=== PATIENT | male | born 1950 | race Hispanic/Latino ===

== ENCOUNTER → 2017-05-31 | Outpatient (CLI) | payer OTHER | END | disposition home or self-care (01) | LOC: OIH 12:42 | PROVIDERS: ATTEND Internal Medicine | DX: M24.811 Other specific joint derangements of right shoulder, not elsewhere classified (principal); M19.011 Primary osteoarthritis, right shoulder | CPT/HCPCS: 73030 ==

== ENCOUNTER → 2017-07-16 | Outpatient (CLI) | payer OTHER | END | disposition home or self-care (01) | LOC: RAH 13:53 | PROVIDERS: ATTEND Internal Medicine | DX: M19.111 Post-traumatic osteoarthritis, right shoulder (principal) | CPT/HCPCS: 73200 ==

== ENCOUNTER → 2017-09-17 | Outpatient (CLI) | payer OTHER | END | disposition home or self-care (01) | LOC: SHCH 09:36 | PROVIDERS: ATTEND Internal Medicine Cardiovascular Disease | DX: I42.9 Cardiomyopathy, unspecified (principal) | CPT/HCPCS: 93306 ==

== ENCOUNTER 2018-07-14 14:05 | Observation (INO) | payer OTHER ==
[~2018-07-14] VITALS: Ht 182.9 cm; Wt 101.6 kg
[2018-07-14 14:42] LABS: BASOPHILS % (AUTO) 0.3 % (0.0-5.0); EOSINOPHILS % (AUTO) 2.4 % (0.0-8.0); HEMATOCRIT 42.9 % (42-54); LYMPHOCYTES % (AUTO) 22.4 % (21.0-51.0); MEAN CORPUSCULAR HEMOGLOBIN 31.3 pg (27.0-33.0); MEAN CORPUSCULAR HGB CONC 34.5 g/dL (32.0-36.0); MEAN CORPUSCULAR VOLUME 90.6 fL (79-99); MONOCYTES % (AUTO) 10.3 % (3.0-13.0); NEUTROPHILS % (AUTO) 64.6 % (40.0-77.0); NUCLEATED RED BLOOD CELLS 0.1 % (0.0-0.19); PLATELET COUNT (AUTO) 135 K/uL (130-400); RED BLOOD CELL COUNT(AUTO) 4.74 MIL/uL (4.50-6.20); RED CELL DISTRIBUTION WIDTH 13.8 % (11.0-15.5); WHITE BLOOD COUNT (AUTO) 5.6 K/uL (4.8-10.8)
[2018-07-14 14:53] LABS: CREATININE 0.9 mg/dL (0.5-1.5); POTASSIUM 3.9 mmol/L (3.5-5.1)
[2018-07-14] MEDS ORDERED: ASPIRIN 325 MG TABLET ONE (15:32)
[2018-07-14 17:40] VITALS: BP 130/72
[2018-07-14] MEDS ORDERED: KRIL1CAP12 PO (17:55)
[2018-07-14] MEDS ORDERED: ASPI-555 PO (17:55)
[2018-07-14] MEDS ORDERED: ROSU10TA27 PO (17:55)
[2018-07-14] MEDS ORDERED: LISI-617 PO (17:55)
[2018-07-14] MEDS ORDERED: SPIR25TA6 PO (17:55)
[2018-07-14] MEDS ORDERED: METO50TA9 PO (17:55)
[2018-07-14] MEDS ORDERED: 1/2 NORMAL SALINE 1,000 ML IV ONE (18:01)
[2018-07-14] MEDS ORDERED: DEXTROSE 50%-WATER 50 ML DISP.SYRIN IV PRN (18:30)
[2018-07-14] MEDS: 1/2 NORMAL SALINE 1,000 ML IV SCH (18:30)
[2018-07-14] MEDS ORDERED: GLUCAGON 1MG KIT 1 MG ML IM PRN (18:30)
[2018-07-14 20:00] VITALS: BP 108/57
[2018-07-14] MEDS: INSULIN R PO SS1 SQ SCH (21:00)
--- NOTE | 2018-07-14 22:40 | NUR ---
MD BEAUCHAMP. DR [place] SENIOR IT ARCHITECT ROUNDING IN PT ROOM AT THIS TIME. UPDATED PT ON POC, PT WAS ABLE TO ASK QUESTIONS AT THIS TIME. Addendum: 07/15/18 at 0225 by OCTAVIO YEE RN Amended: Links added.
[2018-07-14] MEDS: LISINOPRIL 5 MG TABLET PO SCH (22:45)
[2018-07-14] MEDS: ATORVASTATIN CALCIUM 20 MG TABLET PO SCH (22:46)
[2018-07-15] VITALS (7 sets, daily range): BP systolic 107–120; BP diastolic 59–81
[2018-07-15 05:42] LABS: HEMATOCRIT 40.8 % (42-54); MEAN CORPUSCULAR HEMOGLOBIN 31.4 pg (27.0-33.0); MEAN CORPUSCULAR HGB CONC 34.3 g/dL (32.0-36.0); MEAN CORPUSCULAR VOLUME 91.4 fL (79-99); PLATELET COUNT (AUTO) 152 K/uL (130-400); RED BLOOD CELL COUNT(AUTO) 4.46 MIL/uL (4.50-6.20); RED CELL DISTRIBUTION WIDTH 13.6 % (11.0-15.5); WHITE BLOOD COUNT (AUTO) 5.6 K/uL (4.8-10.8)
[2018-07-15 05:58] LABS: ALBUMIN 3.5 g/dL (3.5-5.0); CREATININE 0.9 mg/dL (0.5-1.5); POTASSIUM 3.9 mmol/L (3.5-5.1); TOTAL PROTEIN, SERUM 6.6 g/dL (6.0-8.3)
[2018-07-15] MEDS: 1/2 NORMAL SALINE 1,000 ML IV SCH (06:01)
[2018-07-15] MEDS: INSULIN R PO SS1 SQ SCH ×4 (06:01→20:51)
[2018-07-15] MEDS: KRILL OIL 300 MG PO SCH (09:00)
[2018-07-15] MEDS: LISINOPRIL 5 MG TABLET PO SCH ×2 (09:36→20:51)
[2018-07-15] MEDS: ASPIRIN 325 MG TABLET PO SCH (09:37)
[2018-07-15] MEDS: SPIRONOLACTONE 25 MG TAB PO SCH (09:37)
--- NOTE | 2018-07-15 09:45 | NUR ---
COGNITIVE EVAL COMPLETE. COGNITIVE-LINGUISTIC ABILITIES WITHIN FUNCTIONAL LIMITS. PATIENT INFORMATION: Pt IS A 67 YEAR OLD MALE REFERRED FOR A COGNITIVE-LINGUISTIC EVALUATION SECONDARY TO DIAGNOSIS OF TIA. Pt COOPERATIVE DURING THE EVALUATION AND SERVED THE PRIMARY INFORMANT FOR MEDICAL AND SOCIAL HISTORY. Pt CURRENTLY ADMITTED SECONDARY TO TIA. 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 EVALUATION: Pt AAOX3. Pt REQUESTS WANTS AND NEEDS INDEPENDENTLY. Pt INTELLIGIBLE AT 100% ACCURACY TO THE UNFAMILIAR LISTENER. Pt COMMUNICATING AT CONVERSATIONAL LEVEL WITH NO DEFICITS IDENTIFIED AT THIS TIME. Pt COMPLETED COGNITIVE-LINGUISTIC EVALUATION TARGETING: ORIENTATION, ATTENTION/CONCENTRATION, MEMORY (IMMEDIATE, SHORT-TERM AND LONG-TERM), PROBLEM SOLVING, LOGIC/REASONING/INFERENCE, THOUGHT ORGANIZATION, FUNCTIONAL MATH AND TELLING TIME. Pt ABLE TO COMPLETE TASKS WITH CORRECT AND TIMELY ANSWERS TO ALL SECTIONS. G-CODES SPOKEN LANGUAGE EXPRESSION: [id number] Addendum: 07/15/18 at 1137 by HANNAH GEORGES [facility] Amended: Links added.
--- NOTE | 2018-07-15 10:00 | NUR ---
DYSPHAGIA EVAL COMPLETE. -S/S OF ASPIRATION. RECOMMEND REGULAR, THIN LIQUID DIET; PILLS WHOLE WITH LIQUIDS. PATIENT INFORMATION: Pt IS A 67 YEAR OLD MALE REFERRED FOR A BEDSIDE DYSPHAGIA EVALUATION N SECONDARY TO DIAGNOSIS OF TIA. Pt COOPERATIVE DURING THE EVALUATION AND SERVED THE PRIMARY INFORMANT FOR MEDICAL AND SOCIAL HISTORY. Pt CURRENTLY ADMITTED SECONDARY TO TIA. 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 EVALUATION: SWALLOW FUNCTION AND EFFICIENCY WITHIN FUNCTIONAL LIMITS. ORAL MOTOR STRENGTH, COORDINATION, AND ROM WITHIN FUNCTIONAL LIMITS. LARYNGEAL ELEVATION/EXCURSION STRONG WITH TIMELY PHARYNGEAL RESPONSE. NO OVERT SIGNS OR SYMPTOMS OF ASPIRATION PRESENT AT BEDSIDE. VOCAL QUALITY CLEAR WITH NO THROAT CLEAR OR COUGH RESPONSE PRESENT. RECOMMENDATIONS: 1. REGULAR TEXTURE, THIN LIQUID DIET; PILLS WHOLE WITH LIQUIDS. 2. COMPENSATORY STRATEGIES (PROPHYLAXIS): *SEATED AT 90 DEGREE ANGLE G-CODES SWALLOWING: [id number] Addendum: 07/15/18 at [address] Amended: Links added.
--- NOTE | 2018-07-15 14:15 | NUR ---
Nutrition intervention: Nutrition notification as trigger. Pt admitted for TIA. At time of RD visit pt in procedure. Pt is s/p bedside evaluation by BROADCAST TECHNICIAN with no texture modifications needed. As per pt's RN Charity, no nutrition concerns noted however heart healthy diet education may be beneficial . Recommendations: Modify current diet therapy with [id number]. Consult RD as nutrition concerns arise. Addendum: 07/16/18 at [address] Amended: Links added.
[2018-07-15] MEDS: CLOPIDOGREL BISULFATE 75 MG TAB PO SCH (16:39)
[2018-07-15] MEDS ORDERED: VIT1CAPS21 PO (19:51)
[2018-07-15] MEDS ORDERED: GINK120C PO (19:51)
[2018-07-15] MEDS ORDERED: MECO5000 PO (19:51)
[2018-07-15] MEDS: ATORVASTATIN CALCIUM 20 MG TABLET PO SCH (20:50)
[2018-07-16 04:00] VITALS: BP 106/62
[2018-07-16] MEDS: INSULIN R PO SS1 SQ SCH (06:31)
--- NOTE | 2018-07-16 06:38 | NUR ---
MD BEAUCHAMP. DR ARSLAN BEAUCHAMP IN PT ROOM AT THIS TIME. PT UPDATED WITH POC. STATED PT CAN BE DISCHARGED HOME ONCE CLEARED BY CONSULTED MD. Addendum: 07/16/18 at 0640 by OCTAVIO YEE RN Amended: Links added.
[2018-07-16 08:00] VITALS: BP 112/73
--- NOTE | 2018-07-16 08:00 | NUR ---
GEORGETTE WESTON VISITED WITH PATIENT. POC DISCUSSED. NO NEW ORDERS AT THIS TIME. PATIENT MAY BE DISCHARGED HOME FROM CARDIOLOGY STANDPOINT AFTER PACEMAKER INTERROGATION. PATIENT AWARE. NO QUESTIONS OR CONCERNS VOICED AT THIS TIME. WILL CONTINUE TO BE OBSERVED. CALL LIGHT WITHIN REACH. WILL CONTINUE TO BE OBSERVED. Addendum: 07/16/18 at 1957 by TARIK OLSON RN RN Amended: Links added.
[2018-07-16] MEDS: CLOPIDOGREL BISULFATE 75 MG TAB PO SCH (08:57)
[2018-07-16] MEDS: ASPIRIN 325 MG TABLET PO SCH (08:57)
[2018-07-16] MEDS: SPIRONOLACTONE 25 MG TAB PO SCH (08:57)
[2018-07-16] MEDS: KRILL OIL 300 MG PO SCH (09:00)
[2018-07-16] MEDS: LISINOPRIL 5 MG TABLET PO SCH (09:05)
[2018-07-16 11:00] VITALS: BP 102/57
--- NOTE | 2018-07-16 12:03 | NUR ---
Heart healthy diet education: Provided pt with printed materials on Heart Healthy diet and encouraged pt to look on starting the Mediterranean diet. Pt and with multiple nutritional questions, all questions answered by NIKKIE. Addendum: 07/16/18 at [address] Amended: Links added.
[2018-07-16 16:00] VITALS: BP 123/70
[2018-07-16] MEDS ORDERED: SODIUM CHLORIDE 0.9% 1000ML 1,000 ML IV PRN (18:45)
[2018-07-16] MEDS ORDERED: MORPHINE-NS 50 MG/50 ML 50 ML IV PRN (18:45)
[2018-07-16] MEDS ORDERED: NALOXONE HCL 0.4 MG/1 ML ML IVP PRN (18:45)
--- NOTE | 2018-07-16 20:01 | NUR ---
DISCHARGE PATIENT GIVEN DISCHARGE INSTRUCTIONS AND EDUCATION, INCLUDING SIDE EFFECTS ON NEW PRESCRIBED PLAVIX, CALLED IN TO THE [facility] ON [address] AND FOLLOW UP APPOINTMENTS. PATIENT VERBALIZED UNDERSTANDING OF ALL EDUCATION GIVEN VIA TEACH BACK. NO QUESTIONS OR CONCERNS VOICED AT THIS TIME. IV DISCONTINUED, CATHETER INTACT. CLIMATOLOGY PROFESSOR DISCONTINUED, MONITOR AWARE. NO SIGNS OF DISTRESS NOTED UPON DISCHARGE. PATIENT LEFT VIA WHEELCHAIR WITH SPOUSE TO PRIVATE CAR. ALL BELONGINGS TAKEN WITH. Addendum: 07/16/18 at 2008 by TARIK OLSON RN RN Amended: Links added.
== END 2018-07-16 20:00 | disposition home or self-care (01) ==
LOC: EDH 14:05 → EDHIP 15:40 → 4BH 16:46
PROVIDERS: ADMIT Internal Medicine; ATTEND Internal Medicine
DX: G45.9 Transient cerebral ischemic attack, unspecified (principal); E11.9 Type 2 diabetes mellitus without complications; E78.5 Hyperlipidemia, unspecified; I10 Essential (primary) hypertension; I42.0 Dilated cardiomyopathy; I87.002 Postthrombotic syndrome without complications of left lower extremity; M54.12 Radiculopathy, cervical region; N20.0 Calculus of kidney; Z79.82 Long term (current) use of aspirin; Z86.718 Personal history of other venous thrombosis and embolism; Z95.810 Presence of automatic (implantable) cardiac defibrillator; Z95.828 Presence of other vascular implants and grafts; Z79.899 Other long term (current) drug therapy
CPT/HCPCS: 36415 ×2; 70450; 72125; 80048; 80053; 82948 ×4; 84484; 85025; 85027; 85220; 85300; 85303; 85732; 86147; 92522; 92610; 93005; 93306; 93880; 99284; G0378 ×52; 85306; 99291

== ENCOUNTER 2018-12-18 22:37 | Emergency (ER) | payer OTHER ==
[~2018-12-18 22:37] MED LIST: ASPI-555 PO; GINK120C PO; KRIL1CAP12 PO; LISI-617 PO; MECO5000 PO; METO50TA9 PO; OCUVITE SOFTGE1 EACH PO; ROSU10TA28 PO; SPIR25TA6 PO
== END 2018-12-18 23:28 | disposition home or self-care (01) ==
LOC: EDH 22:37
DX: S80.212A Abrasion, left knee, initial encounter (principal); S80.812A Abrasion, left lower leg, initial encounter; I10 Essential (primary) hypertension; E78.5 Hyperlipidemia, unspecified; Z95.1 Presence of aortocoronary bypass graft; Z86.718 Personal history of other venous thrombosis and embolism; W22.8XXA Striking against or struck by other objects, initial encounter; Y93.89 Activity, other specified; Y92.009 Unspecified place in unspecified non-institutional (private) residence as the place of occurrence of the external cause; Y99.8 Other external cause status
CPT/HCPCS: 99281

== ENCOUNTER → 2019-03-10 | Outpatient (CLI) | payer OTHER | END | disposition home or self-care (01) | LOC: OIH 16:14 | PROVIDERS: ATTEND Internal Medicine | DX: J20.9 Acute bronchitis, unspecified (principal) | CPT/HCPCS: 71046 ==

== ENCOUNTER → 2019-03-26 | Outpatient (CLI) | payer OTHER | END | disposition home or self-care (01) | LOC: OIH 12:43 | PROVIDERS: ATTEND Internal Medicine | DX: J20.9 Acute bronchitis, unspecified (principal); M47.815 Spondylosis without myelopathy or radiculopathy, thoracolumbar region; I10 Essential (primary) hypertension; Z95.0 Presence of cardiac pacemaker; Z86.718 Personal history of other venous thrombosis and embolism | CPT/HCPCS: 71046 ==

== ENCOUNTER 2020-03-30 08:37 | Observation (INO) | payer OTHER ==
[2020-03-28 11:17] LABS: BASOPHILS % (AUTO) 0.3 % (0.0-5.0); EOSINOPHILS % (AUTO) 2.1 % (0.0-8.0); HEMATOCRIT 46.2 % (42-54); LYMPHOCYTES % (AUTO) 18.7 % (21.0-51.0); MEAN CORPUSCULAR HEMOGLOBIN 30.3 pg (27.0-33.0); MEAN CORPUSCULAR HGB CONC 32.9 g/dL (32.0-36.0); MEAN CORPUSCULAR VOLUME 92.2 fL (79-99); MONOCYTES % (AUTO) 8.6 % (3.0-13.0); NEUTROPHILS % (AUTO) 69.9 % (40.0-77.0); PLATELET COUNT (AUTO) 146 K/uL (130-400); RED BLOOD CELL COUNT(AUTO) 5.01 MIL/uL (4.50-6.20); RED CELL DISTRIBUTION WIDTH 13.1 % (11.0-15.5); WHITE BLOOD COUNT (AUTO) 7.8 K/uL (4.8-10.8)
[2020-03-28 11:18] LABS: POTASSIUM 4.8 mmol/L (3.5-5.1)
[2020-03-28 11:58] LABS: INR 0.98 (0.85-1.15); PARTIAL THROMBOPLASTIN TIME 27.4 SEC (26.3-35.5); PROTHROMBIN TIME 10.6 SEC (9.6-11.6)
[2020-03-29 10:31] VITALS: BP 119/75
--- NOTE | 2020-03-29 10:55 | NUR ---
JEREMY DEL [employer]RON[employer] REP NOTIFIED
[2020-03-30] VITALS (8 sets, daily range): BP systolic 119–138; BP diastolic 72–82
[~2020-03-30] VITALS: Ht 179.1 cm; Wt 100.2 kg
[~2020-03-30 08:37] MED LIST changes: +AREDS EYE SUPPLEMENT PO; -ASPI-555 PO; +ASPI-556 PO; +CALTRATE 600 PO; +CLOP75TA32 PO; -GINK120C PO; -KRIL1CAP12 PO; -LISI-617 PO; -MECO5000 PO; -OCUVITE SOFTGE1 EACH PO; +SACU1TAB PO; +SODIUM CHLORIDE 0.9% 500ML 500 ML IV SCH; -SPIR25TA6 PO
[2020-03-30] MEDS ORDERED: MEGA RED PO (09:05)
[2020-03-30] MEDS ORDERED: [UNRECOGNIZED DRUG - OTHER] PO (09:05)
[2020-03-30] MEDS ORDERED: GINK120C PO (09:07)
[2020-03-30] MEDS ORDERED: C,E,1CAP2 PO (09:07)
[2020-03-30] MEDS ORDERED: SODIUM CHLORIDE 0.9% 1000ML 1,000 ML IV ONE (09:22)
--- NOTE | 2020-03-30 12:21 | NUR ---
PT ENDORSED TO [facility] GABRIEL. PENDING ARCHITECTURAL MANAGER TO PICK HIM UP FOR PROCEDURE. PT RESTING. NO ACUTE DISTRESS NOTED.
[2020-03-30] MEDS ORDERED: BUPIVACAINE/PF 0.25% 30ML VIAL IJ ONE (12:56)
[2020-03-30] MEDS ORDERED: IODIXANOL 320 MG/ML 100 ML VIAL ONE (12:56)
[2020-03-30] MEDS ORDERED: MEPERIDINE-PF 25 MG/ML SYG ONE ×5 (12:57→14:28)
[2020-03-30] MEDS ORDERED: MIDAZOLAM HCL 1 MG/ML 2ML VIAL ONE ×5 (12:57→14:28)
[2020-03-30] MEDS ORDERED: LIDOCAINE HCL 1% MDV 50ML VIAL ONE (12:57)
[2020-03-30] MEDS ORDERED: CEFAZOLIN SODIUM 1 GM VIAL ONE (13:15)
[2020-03-30] MEDS ORDERED: THROMBIN-JMI 5000 UNIT/VIAL TP ONE (14:50)
[2020-03-30] MEDS ORDERED: ONDANSETRON HCL 4 MG/2 ML VIAL IV PRN (15:30)
[2020-03-30] MEDS ORDERED: ACETAMINOPHEN-CODEINE 300/30MG TAB PO PRN ×2 (15:30)
[2020-03-30] MEDS: CEFAZOLIN SODIUM 1 GM VIAL IVP SCH (20:27)
[2020-03-30] MEDS ORDERED: METOPROLOL SUCCINATE 50 MG TAB.SR.24H PO SCH (21:00)
[2020-03-30] MEDS ORDERED: CLOPIDOGREL BISULFATE 75 MG TAB PO SCH (21:00)
[2020-03-30] MEDS ORDERED: ATORVASTATIN CALCIUM 20 MG TABLET PO SCH (21:00)
[2020-03-30] MEDS ORDERED: [UNRECOGNIZED DRUG - OTHER] PO SCH (21:00)
[2020-03-30] MEDS ORDERED: SACUBITRIL PO SCH (21:00)
[2020-03-30] MEDS ORDERED: NON-FORMULARY MEDICATION 1 EACH (Rosuvastatin Calcium 10 MG) PO SCH (21:00)
[2020-03-30] MEDS ORDERED: VALSARTAN PO SCH (21:00)
[2020-03-30] MEDS ORDERED: ZOLPIDEM TARTRATE 5 MG TAB PO PRN (22:00)
[2020-03-31] VITALS: BP 122/71
[2020-03-31 04:07] VITALS: BP 121/74
[2020-03-31] MEDS: CEFAZOLIN SODIUM 1 GM VIAL IVP SCH (04:35)
[2020-03-31 07:00] VITALS: BP 130/76
[2020-03-31] MEDS ORDERED: CALCIUM 600 + VITAMIN D 400 TABLET PO SCH (09:00)
[2020-03-31] MEDS ORDERED: AREDS EYE SUPPLEMENT PO SCH ×2 (09:00)
[2020-03-31] MEDS ORDERED: GINKGO BILOBA EXTRACT 120 MG PO SCH (09:00)
[2020-03-31] MEDS ORDERED: ASPIRIN 81 MG EC TAB PO SCH (09:00)
[2020-03-31] MEDS ORDERED: CALTRATE PO SCH (09:00)
[2020-03-31] MEDS ORDERED: MEGA RED 350 MG PO SCH ×2 (09:00)
[2020-03-31] MEDS ORDERED: [UNRECOGNIZED DRUG - OTHER] PO SCH (09:00)
[2020-03-31] MEDS ORDERED: COQ10 PO SCH (09:00)
[2020-03-31] MEDS ORDERED: [UNRECOGNIZED DRUG - OTHER] PO SCH (09:00)
[2020-03-31] MEDS ORDERED: MULTIVITAMIN TABLET PO SCH (09:00)
[2020-03-31] MEDS ORDERED: GINKGO PO SCH (09:00)
[2020-03-31 11:00] VITALS: BP 118/70
--- NOTE | 2020-03-31 13:37 | NUR ---
1210 patient signed MCCLAIN Letter, I faxed MCCLAIN Letter to [phone] and placed in chart under consent tab.
[2020-03-31 15:00] VITALS: BP 113/73
--- NOTE | 2020-03-31 15:01 | NUR ---
BIOTRONI DEVICE INTERROGATION REQUESTED.
--- NOTE | 2020-03-31 15:43 | NUR ---
CHART REVIEWED, SCHEDULED OPP, NO TRIGGERS FOR CM, DETAILED CM ASSESSMENT DEFERRED, Addendum: 04/01/20 at 1544 by JAMES JAIN RN CM Amended: Links added.
--- NOTE | 2020-03-31 16:00 | NUR ---
RECEIVED CALL FROM JEREMY AMIN [employer] REP., INFORMED OF INTERROGATION ORDER; STATES ICD BY REMOTE MONITOR CONFIRMS, "EVERYTHING IS WORKING OK."
--- NOTE | 2020-03-31 18:15 | NUR ---
HL REMOVED, CATHETER INTACT. DISCHARGE INSTRUCTIONS GIVEN, INCLUDING LEFT ARM RESTRICTIONS AND DRSG TO REMAIN UNTOUCHED UNTIL MD OFFICE VISIT, PT. VERBALIZED UNDERSTANDING. PRESCRIPTIONS CALLED IN TO PT.'S PHARMACY.
--- NOTE | 2020-03-31 18:30 | NUR ---
DISCHARGED HOME VIA W/C WITH BELONGINGS ACCOMPANIED BY ANTHONY CASTILLO.
== END 2020-03-31 18:30 | disposition home or self-care (01) ==
LOC: DAH 08:37 → INTOOBSV 08:38 → DAHIP 08:38 → OBSVTOIN 08:38 → 4DH 16:30
PROVIDERS: ADMIT Internal Medicine; ATTEND Internal Medicine
DX: Z45.02 Encounter for adjustment and management of automatic implantable cardiac defibrillator (principal); I42.8 Other cardiomyopathies; I50.22 Chronic systolic (congestive) heart failure; Z86.73 Personal history of transient ischemic attack (TIA), and cerebral infarction without residual deficits; Z86.718 Personal history of other venous thrombosis and embolism; Z79.01 Long term (current) use of anticoagulants; Z79.899 Other long term (current) drug therapy
CPT/HCPCS: 33225; 33264; 36415; 71046; 80048; 85025; 85610; 85730; 93005; 96361 ×2; 96374; 96376; A4215; A4216; A4221; A4222; A4223 ×3; A4606; A4663; C1769 ×2; C1882; C1894; C1900; G0378 ×27; J0690 ×3; J2175 ×5; J2250 ×5; J3490 ×3; J7030; Q9967; 99156; 99157

== ENCOUNTER → 2020-11-18 | Outpatient (CLI) | payer MEDICARE ==
[~2020-11-18] MED LIST changes: +C,E,1CAP2 PO; +GINK120C PO; +MEGA RED PO; -SODIUM CHLORIDE 0.9% 500ML 500 ML IV SCH; +[UNRECOGNIZED DRUG - OTHER] PO
== END | disposition home or self-care (01) ==
LOC: SLP 20:57
PROVIDERS: ATTEND Internal Medicine Cardiovascular Disease
DX: G47.33 Obstructive sleep apnea (adult) (pediatric) (principal)
CPT/HCPCS: 95810

== ENCOUNTER → 2020-12-04 | Outpatient (CLI) | payer MEDICARE | END | disposition home or self-care (01) | LOC: SLP 21:10 | PROVIDERS: ATTEND Internal Medicine | DX: G47.33 Obstructive sleep apnea (adult) (pediatric) (principal) | CPT/HCPCS: 95811 ==

== ENCOUNTER → 2022-03-02 | Outpatient (CLI) | payer MEDICARE | END | disposition home or self-care (01) | LOC: RAH 15:18 | PROVIDERS: ATTEND Physician Assistant | DX: M47.812 Spondylosis without myelopathy or radiculopathy, cervical region (principal); M47.26 Other spondylosis with radiculopathy, lumbar region | CPT/HCPCS: 72050; 72110; 73030 ==

== ENCOUNTER → 2023-03-15 | Outpatient (CLI) | payer MEDICARE ==
[2023-03-15 15:45] LABS: ALBUMIN 3.9 g/dL (3.5-5.0); BILIRUBIN,TOTAL 1.9 mg/dL (0.2-1.0); CREATININE 1.1 mg/dL (0.5-1.5); MAGNESIUM 1.8 mg/dL (1.80-2.40); POTASSIUM 4.6 mmol/L (3.5-5.1); TOTAL PROTEIN, SERUM 7.2 g/dL (6.0-8.3)
== END | disposition home or self-care (01) ==
LOC: LAB 14:01
PROVIDERS: ATTEND Internal Medicine Cardiovascular Disease
DX: E78.5 Hyperlipidemia, unspecified (principal)
CPT/HCPCS: 36415; 80053; 83735; 83880

== ENCOUNTER 2023-05-30 05:57 | Day surgery (SDC) | payer MEDICARE ==
[2023-05-30] VITALS (14 sets, daily range): BP systolic 82–113; BP diastolic 49–76; PULSE 70–82; RESP 10–16
[~2023-05-30] VITALS: Ht 182.9 cm; Wt 103.4 kg
[~2023-05-30 05:57] MED LIST changes: -AREDS EYE SUPPLEMENT PO; -C,E,1CAP2 PO; -CALTRATE 600 PO; -CLOP75TA32 PO; +FURO40TA5 PO; -GINK120C PO; -MEGA RED PO; +VIT1TAB.9 PO; -[UNRECOGNIZED DRUG - OTHER] PO
[2023-05-30] MEDS ORDERED: LIDOCAINE HCL 1% 20 ML VIAL ONE (07:10)
[2023-05-30] MEDS ORDERED: PROPOFOL 10 MG/ML 20ML VIAL IV ONE (07:10)
== END 2023-05-30 08:55 | disposition home or self-care (01) ==
LOC: ENDO 05:57 → DAH 05:57 → ENDO 08:55
PROVIDERS: ATTEND Internal Medicine Gastroenterology
DX: K31.7 Polyp of stomach and duodenum (principal); K29.70 Gastritis, unspecified, without bleeding; K44.9 Diaphragmatic hernia without obstruction or gangrene; R68.81 Early satiety; K57.30 Diverticulosis of large intestine without perforation or abscess without bleeding; I10 Essential (primary) hypertension; I25.10 Atherosclerotic heart disease of native coronary artery without angina pectoris; E78.5 Hyperlipidemia, unspecified; Z86.010 Personal history of colon polyps; Z86.718 Personal history of other venous thrombosis and embolism; Z79.01 Long term (current) use of anticoagulants; Z98.890 Other specified postprocedural states; Z82.49 Family history of ischemic heart disease and other diseases of the circulatory system; Z83.3 Family history of diabetes mellitus; Z95.0 Presence of cardiac pacemaker; Z79.82 Long term (current) use of aspirin; Z79.02 Long term (current) use of antithrombotics/antiplatelets; Z79.899 Other long term (current) drug therapy
CPT/HCPCS: 43251; 43239; J2704; A4620; A4649; A4215 ×2; A4223; A7002; A4222; A4221; A4663; J7030; A4606; J3490

== ENCOUNTER → 2023-06-03 | Outpatient (CLI) | payer MEDICARE ==
[2023-06-03 13:10] LABS: ALBUMIN 3.8 g/dL (3.5-5.0); BILIRUBIN,TOTAL 1.9 mg/dL (0.2-1.0); CREATININE 1.2 mg/dL (0.5-1.5); POTASSIUM 4.3 mmol/L (3.5-5.1); TOTAL PROTEIN, SERUM 7.1 g/dL (6.0-8.3)
== END | disposition home or self-care (01) ==
LOC: LAB 11:28
PROVIDERS: ATTEND Internal Medicine Cardiovascular Disease
DX: I42.0 Dilated cardiomyopathy (principal); E78.5 Hyperlipidemia, unspecified
CPT/HCPCS: 36415; 80053; 83735; 83880

== ENCOUNTER → 2023-08-09 | Outpatient (CLI) | payer MEDICARE ==
[2023-08-09 12:29] LABS: BASOPHILS # (AUTO) 0.02 K/uL (0.00-0.20); BASOPHILS % (AUTO) 0.3 % (0.0-5.0); EOSINOPHILS # (AUTO) 0.21 K/uL (0.00-0.70); EOSINOPHILS % (AUTO) 3.1 % (0.0-8.0); HEMATOCRIT 43.9 % (42-54); IMMATURE GRANULOCYTE ABSOLUTE 0.02 K/uL (0-1); LYMPHOCYTES % (AUTO) 29.7 % (21.0-51.0); MEAN CORPUSCULAR HEMOGLOBIN 30.4 pg (27.0-33.0); MEAN CORPUSCULAR HGB CONC 32.6 g/dL (32.0-36.0); MEAN CORPUSCULAR VOLUME 93.4 fL (79-99); MONOCYTES # (AUTO) 0.6 K/uL (0.1-1.0); MONOCYTES % (AUTO) 9.1 % (3.0-13.0); NEUTROPHILS # (AUTO) 3.8 K/uL (1.8-7.7); NEUTROPHILS % (AUTO) 57.5 % (40.0-77.0); PLATELET COUNT (AUTO) 131 K/uL (130-400); RED CELL DISTRIBUTION WIDTH 13.6 % (11.0-15.5); WHITE BLOOD COUNT (AUTO) 6.7 K/uL (4.8-10.8)
[2023-08-09 12:44] LABS: INR 0.96 (0.85-1.15); PROTHROMBIN TIME 11.4 SEC (9.6-11.6)
[2023-08-09 12:45] LABS: PARTIAL THROMBOPLASTIN TIME 30.7 SEC (26.3-35.5)
[2023-08-09 13:08] LABS: CREATININE 1.1 mg/dL (0.5-1.3); POTASSIUM 4.3 mmol/L (3.5-5.1)
[2023-08-09 14:35] LABS: BASOPHILS # (AUTO) 0.02 K/uL (0.00-0.20); BASOPHILS % (AUTO) 0.3 % (0.0-5.0); EOSINOPHILS # (AUTO) 0.17 K/uL (0.00-0.70); EOSINOPHILS % (AUTO) 2.6 % (0.0-8.0); HEMATOCRIT 41.7 % (42-54); IMMATURE GRANULOCYTE ABSOLUTE 0.03 K/uL (0-1); LYMPHOCYTES # (AUTO) 1.3 K/uL (1.0-4.8); LYMPHOCYTES % (AUTO) 20.1 % (21.0-51.0); MEAN CORPUSCULAR HEMOGLOBIN 30.8 pg (27.0-33.0); MEAN CORPUSCULAR HGB CONC 33.1 g/dL (32.0-36.0); MEAN CORPUSCULAR VOLUME 93.1 fL (79-99); MONOCYTES # (AUTO) 0.6 K/uL (0.1-1.0); MONOCYTES % (AUTO) 8.9 % (3.0-13.0); NEUTROPHILS # (AUTO) 4.4 K/uL (1.8-7.7); NEUTROPHILS % (AUTO) 67.6 % (40.0-77.0); PLATELET COUNT (AUTO) 123 K/uL (130-400); RED BLOOD CELL COUNT(AUTO) 4.48 MIL/uL (4.50-6.20); RED CELL DISTRIBUTION WIDTH 13.7 % (11.0-15.5); WHITE BLOOD COUNT (AUTO) 6.5 K/uL (4.8-10.8)
== END | disposition home or self-care (01) ==
LOC: LAB 08-07 15:03
PROVIDERS: ATTEND Internal Medicine Gastroenterology
DX: I87.2 Venous insufficiency (chronic) (peripheral) (principal); D69.6 Thrombocytopenia, unspecified; I87.1 Compression of vein
CPT/HCPCS: 36415; 80048; 85025; 85060; 85610; 85730

== ENCOUNTER → 2023-11-20 | Outpatient (CLI) | payer MEDICARE ==
[~2023-11-20] MED LIST changes: -ROSU10TA28 PO; +ROSU10TA72 PO
[2023-11-20 16:16] LABS: BASOPHILS # (AUTO) 0.02 K/uL (0.00-0.20); BASOPHILS % (AUTO) 0.3 % (0.0-5.0); EOSINOPHILS % (AUTO) 3.1 % (0.0-8.0); IMMATURE GRANULOCYTE ABSOLUTE 0.01 K/uL (0-1); LYMPHOCYTES # (AUTO) 1.8 K/uL (1.0-4.8); LYMPHOCYTES % (AUTO) 28.7 % (21.0-51.0); MEAN CORPUSCULAR HEMOGLOBIN 30.8 pg (27.0-33.0); MEAN CORPUSCULAR HGB CONC 32.2 g/dL (32.0-36.0); MEAN CORPUSCULAR VOLUME 95.8 fL (79-99); MONOCYTES # (AUTO) 0.7 K/uL (0.1-1.0); MONOCYTES % (AUTO) 10.4 % (3.0-13.0); NEUTROPHILS # (AUTO) 3.7 K/uL (1.8-7.7); NEUTROPHILS % (AUTO) 57.3 % (40.0-77.0); PLATELET COUNT (AUTO) 138 K/uL (130-400); WHITE BLOOD COUNT (AUTO) 6.4 K/uL (4.8-10.8)
[2023-11-20 16:27] LABS: INR 1.06 (0.85-1.15); PROTHROMBIN TIME 11.4 SEC (9.6-11.6)
[2023-11-20 16:28] LABS: PARTIAL THROMBOPLASTIN TIME 28.6 SEC (26.3-35.5)
[2023-11-20 16:30] LABS: CREATININE 1.1 mg/dL (0.5-1.3)
== END | disposition home or self-care (01) ==
LOC: LAB 11:38
PROVIDERS: ATTEND Internal Medicine Cardiovascular Disease
DX: I87.2 Venous insufficiency (chronic) (peripheral) (principal); I87.1 Compression of vein; I73.9 Peripheral vascular disease, unspecified; M79.89 Other specified soft tissue disorders
CPT/HCPCS: 36415; 80048; 85025; 85610; 85730

== ENCOUNTER → 2023-12-24 | Outpatient (CLI) | payer MEDICARE ==
[2023-12-24 16:40] LABS: ALBUMIN 3.4 g/dL (3.5-5.0); BILIRUBIN,TOTAL 1.5 mg/dL (0.2-1.0); CREATININE 1.3 mg/dL (0.5-1.3); POTASSIUM 4.7 mmol/L (3.5-5.1); TOTAL PROTEIN, SERUM 6.8 g/dL (6.0-8.3)
== END | disposition home or self-care (01) ==
LOC: LAB 11:30
PROVIDERS: ATTEND Internal Medicine Cardiovascular Disease
DX: Z13.6 Encounter for screening for cardiovascular disorders (principal); E66.9 Obesity, unspecified; Z95.820 Peripheral vascular angioplasty status with implants and grafts
CPT/HCPCS: 36415; 80053; 83880; 84484

== ENCOUNTER → 2023-12-24 | Outpatient (CLI) | payer MEDICARE | END | disposition home or self-care (01) | LOC: SHCH 13:53 | PROVIDERS: ATTEND Internal Medicine Cardiovascular Disease | DX: Z13.6 Encounter for screening for cardiovascular disorders (principal) | CPT/HCPCS: 93306 ==

== ENCOUNTER 2023-12-29 22:48 | Observation (INO) | payer MEDICARE ==
[~2023-12-29] VITALS: Ht 182.9 cm; Wt 98.9 kg
[2023-12-29 23:01] LABS: BASOPHILS # (AUTO) 0.01 K/uL (0.00-0.20); BASOPHILS % (AUTO) 0.1 % (0.0-5.0); EOSINOPHILS # (AUTO) 0.09 K/uL (0.00-0.70); EOSINOPHILS % (AUTO) 0.9 % (0.0-8.0); HEMATOCRIT 46.9 % (42-54); IMMATURE GRANULOCYTE ABSOLUTE 0.04 K/uL (0-1); LYMPHOCYTES # (AUTO) 1.5 K/uL (1.0-4.8); LYMPHOCYTES % (AUTO) 13.7 % (21.0-51.0); MEAN CORPUSCULAR HEMOGLOBIN 29.8 pg (27.0-33.0); MEAN CORPUSCULAR VOLUME 93.1 fL (79-99); MONOCYTES # (AUTO) 1.1 K/uL (0.1-1.0); MONOCYTES % (AUTO) 10.6 % (3.0-13.0); NEUTROPHILS # (AUTO) 7.9 K/uL (1.8-7.7); NEUTROPHILS % (AUTO) 74.3 % (40.0-77.0); PLATELET COUNT (AUTO) 193 K/uL (130-400); RED BLOOD CELL COUNT(AUTO) 5.04 MIL/uL (4.50-6.20); RED CELL DISTRIBUTION WIDTH 15.5 % (11.0-15.5); WHITE BLOOD COUNT (AUTO) 10.6 K/uL (4.8-10.8)
[2023-12-29 23:09] LABS: CREATININE 1.2 mg/dL (0.5-1.3); POTASSIUM 4.1 mmol/L (3.5-5.1)
[2023-12-29 23:11] LABS: INR 1.16 (0.85-1.15); PROTHROMBIN TIME 12.4 SEC (9.6-11.6)
[2023-12-29 23:13] LABS: PARTIAL THROMBOPLASTIN TIME 26.5 SEC (26.3-35.5)
[2023-12-29 23:24] LABS: B-TYPE NATRIURETIC PEPTIDE 2220 pg/mL (0-100)
[2023-12-30] VITALS (9 sets, daily range): BP systolic 100–130; BP diastolic 57–94; PULSE 69–99; RESP 16–21; TEMP 97.8–98.8; O2SAT 93–96
[2023-12-30] MEDS ORDERED: IOHEXOL 350 MG/ML 100ML INFUS..BTL IV ONE (00:10)
[2023-12-30 00:49] LABS: APPEARANCE,URINE CLEAR (CLEAR); BILIRUBIN,URINE NEGATIVE (NEGATIVE); COLOR,URINE COLORLESS (YELLOW); GLUCOSE, URINE (UA) NEGATIVE (NEGATIVE); KETONES,URINE NEGATIVE (NEGATIVE); LEUKOCYTE ESTERASE ,URINE NEGATIVE Leu/uL (NEGATIVE); NITRATE,URINE NEGATIVE (NEGATIVE); OCCULT BLOOD,URINE NEGATIVE (NEGATIVE); PH,URINE 6.5 (5.0-8.0); PROTEIN,URINE NEGATIVE (NEGATIVE); UROBILINOGEN,URINE 0.2 mg/dL (0.2-1.0)
[2023-12-30 00:51] LABS: ADD UA MICROSCOPIC NO
[2023-12-30] MEDS ORDERED: CLOP75TA32 PO (03:53)
[2023-12-30] MEDS ORDERED: ROSU10TA72 PO (03:53)
[2023-12-30] MEDS ORDERED: METO-391 PO (03:53)
[2023-12-30] MEDS ORDERED: MONT-39 PO (03:53)
[2023-12-30] MEDS ORDERED: TADA20TA72 PO (03:53)
[2023-12-30] MEDS ORDERED: PRED20TA3 PO (03:53)
[2023-12-30 04:09] LABS: BASOPHILS # (AUTO) 0.02 K/uL (0.00-0.20); BASOPHILS % (AUTO) 0.2 % (0.0-5.0); EOSINOPHILS # (AUTO) 0.09 K/uL (0.00-0.70); EOSINOPHILS % (AUTO) 0.9 % (0.0-8.0); HEMATOCRIT 46.4 % (42-54); IMMATURE GRANULOCYTE ABSOLUTE 0.05 K/uL (0-1); LYMPHOCYTES # (AUTO) 1.4 K/uL (1.0-4.8); LYMPHOCYTES % (AUTO) 14.4 % (21.0-51.0); MEAN CORPUSCULAR HGB CONC 32.1 g/dL (32.0-36.0); MEAN CORPUSCULAR VOLUME 93.4 fL (79-99); MONOCYTES # (AUTO) 0.9 K/uL (0.1-1.0); MONOCYTES % (AUTO) 9.4 % (3.0-13.0); NEUTROPHILS # (AUTO) 7.3 K/uL (1.8-7.7); NEUTROPHILS % (AUTO) 74.6 % (40.0-77.0); PLATELET COUNT (AUTO) 175 K/uL (130-400); RED BLOOD CELL COUNT(AUTO) 4.97 MIL/uL (4.50-6.20); RED CELL DISTRIBUTION WIDTH 15.7 % (11.0-15.5); WHITE BLOOD COUNT (AUTO) 9.8 K/uL (4.8-10.8)
[2023-12-30] MEDS ORDERED: AEC81 PO (04:44)
[2023-12-30 04:55] LABS: CREATININE 1.3 mg/dL (0.5-1.3); POTASSIUM 4.6 mmol/L (3.5-5.1)
[2023-12-30] MEDS: furoSEMIDE 20MG VIAL IV SCH (09:00)
[2023-12-30] MEDS: ASPIRIN 81 MG EC TAB PO SCH (09:01)
[2023-12-30] MEDS: metoPROLOL tartRATE 25 MG TAB PO SCH (09:01)
[2023-12-30] MEDS: furoSEMIDE 40MG VIAL IV ONE (09:01)
[2023-12-30] MEDS: PoTASSium chloRIDE 20MEQ ER 20 MEQ ERTAB PO SCH (09:01)
[2023-12-30] MEDS: cloPIDOgrel 75MG TAB PO SCH (09:02)
[2023-12-30] MEDS: acetaMINOPHEN 325 MG TAB PO PRN (20:27)
[2023-12-30] MEDS: atorVAStatin 40 MG TABLET PO SCH (20:27)
[2023-12-30] MEDS ORDERED: TROLAMINE SALICYLATE CREAM 85 GM TUBE TP PRN (20:30)
[2023-12-31] VITALS (9 sets, daily range): BP systolic 104–117; BP diastolic 66–89; PULSE 61–83; RESP 16–18; TEMP 97.8–98.8; O2SAT 93–95
[2023-12-31 03:50] LABS: HEMATOCRIT 43.9 % (42-54); MEAN CORPUSCULAR HEMOGLOBIN 30.1 pg (27.0-33.0); MEAN CORPUSCULAR HGB CONC 32.6 g/dL (32.0-36.0); MEAN CORPUSCULAR VOLUME 92.4 fL (79-99); RED BLOOD CELL COUNT(AUTO) 4.75 MIL/uL (4.50-6.20); RED CELL DISTRIBUTION WIDTH 15.6 % (11.0-15.5); WHITE BLOOD COUNT (AUTO) 8.9 K/uL (4.8-10.8)
[2023-12-31 04:04] LABS: ALBUMIN 2.9 g/dL (3.5-5.0); CREATININE 1.4 mg/dL (0.5-1.3); POTASSIUM 3.8 mmol/L (3.5-5.1); TOTAL PROTEIN, SERUM 5.9 g/dL (6.0-8.3)
[2023-12-31] MEDS ORDERED: PoTASSium chl 10% ELIXIR 20MEQ 20 MEQ/15 ML UDCUP PO PRN (07:00)
[2023-12-31] MEDS ORDERED: PoTASSium chloRIDE 20MEQ/100ML 100 ML IV PRN (07:00)
[2023-12-31] MEDS ORDERED: PoTASSium chloRIDE 20MEQ ER 20 MEQ ERTAB PO PRN (07:00)
[2023-12-31] MEDS: furoSEMIDE 20MG VIAL IV ONE (10:45)
[2023-12-31] MEDS: furoSEMIDE 40 MG TABLET PO SCH (17:03)
[2024-01-01 03:14] VITALS: BP 111/75; PULSE 79; RESP 18; TEMP 98.4
[2024-01-01 07:00] VITALS: BP 108/74; PULSE 75; RESP 17; TEMP 97.8
== END 2024-01-01 09:40 | disposition home or self-care (01) ==
LOC: EDH 22:48 → EDHIP 12-30 02:55 → INTOOBSV 12-30 02:55 → 2AH 12-30 03:56
PROVIDERS: ADMIT Internal Medicine; ATTEND Internal Medicine
DX: I25.5 Ischemic cardiomyopathy (principal); G45.9 Transient cerebral ischemic attack, unspecified; I11.0 Hypertensive heart disease with heart failure; I50.22 Chronic systolic (congestive) heart failure; G47.33 Obstructive sleep apnea (adult) (pediatric); I73.9 Peripheral vascular disease, unspecified; G89.29 Other chronic pain; M54.50 Low back pain, unspecified; I07.1 Rheumatic tricuspid insufficiency; I42.8 Other cardiomyopathies; I87.1 Compression of vein; R07.89 Other chest pain; E11.51 Type 2 diabetes mellitus with diabetic peripheral angiopathy without gangrene; E46 Unspecified protein-calorie malnutrition; N62 Hypertrophy of breast; R47.81 Slurred speech; R60.0 Localized edema; I25.10 Atherosclerotic heart disease of native coronary artery without angina pectoris; Z86.718 Personal history of other venous thrombosis and embolism; Z86.73 Personal history of transient ischemic attack (TIA), and cerebral infarction without residual deficits; Z95.5 Presence of coronary angioplasty implant and graft; Z95.810 Presence of automatic (implantable) cardiac defibrillator; Z86.16 Personal history of COVID-19; Z79.899 Other long term (current) drug therapy; Z79.82 Long term (current) use of aspirin; Z68.29 Body mass index [BMI] 29.0-29.9, adult
CPT/HCPCS: 70496; 71045; 82550 ×4; 83721; 84484 ×4; 80048 ×2; 83880; 85025 ×2; 85610; 85730; 70498; 93005 ×2; 99291; 96374; 97161; 92611; 92522; 97116 ×3; 96376 ×2; 83735; 81003; 36415 ×2; 74230; 93880; 80053; 85027; 70450; 92610; J1940 ×4; Q9967; G0378; 99218

== ENCOUNTER → 2024-03-05 | Outpatient (CLI) | payer MEDICARE ==
[~2024-03-05] MED LIST changes: +AEC81 PO; -ASPI-556 PO; +CLOP75TA32 PO; -VIT1TAB.9 PO
== END | disposition home or self-care (01) ==
LOC: SHCH 10:50
PROVIDERS: ATTEND Internal Medicine Cardiovascular Disease
DX: I87.2 Venous insufficiency (chronic) (peripheral) (principal); I87.1 Compression of vein
CPT/HCPCS: 93970

== ENCOUNTER → 2024-03-05 | Outpatient (CLI) | payer MEDICARE | END | disposition home or self-care (01) | LOC: RAH 14:50 | PROVIDERS: ATTEND Internal Medicine | DX: K42.9 Umbilical hernia without obstruction or gangrene (principal); J90 Pleural effusion, not elsewhere classified; N20.0 Calculus of kidney; R31.29 Other microscopic hematuria; J84.10 Pulmonary fibrosis, unspecified; M47.815 Spondylosis without myelopathy or radiculopathy, thoracolumbar region; K76.0 Fatty (change of) liver, not elsewhere classified; K57.90 Diverticulosis of intestine, part unspecified, without perforation or abscess without bleeding; I70.0 Atherosclerosis of aorta; N40.0 Benign prostatic hyperplasia without lower urinary tract symptoms; M79.89 Other specified soft tissue disorders; I73.9 Peripheral vascular disease, unspecified; M79.604 Pain in right leg; M79.605 Pain in left leg; Z98.890 Other specified postprocedural states | CPT/HCPCS: 74176; 93970 ==

== ENCOUNTER → 2024-05-19 | Outpatient (CLI) | payer MEDICARE ==
[~2024-05-19] MED LIST changes: +AMIO200T44 PO; +APIX5TAB PO; +CALC1TAB2 PO; -CLOP75TA32 PO; +MAGN100T PO; +SPIR25TA6 PO; +ZINC220T4 PO
[2024-05-19 16:12] LABS: BASOPHILS # (AUTO) 0.02 K/uL (0.00-0.20); BASOPHILS % (AUTO) 0.3 % (0.0-5.0); EOSINOPHILS # (AUTO) 0.06 K/uL (0.00-0.70); EOSINOPHILS % (AUTO) 0.9 % (0.0-8.0); HEMATOCRIT 44.8 % (42-54); IMMATURE GRANULOCYTE ABSOLUTE 0.02 K/uL (0-1); LYMPHOCYTES # (AUTO) 0.7 K/uL (1.0-4.8); LYMPHOCYTES % (AUTO) 10.2 % (21.0-51.0); MEAN CORPUSCULAR HEMOGLOBIN 29.5 pg (27.0-33.0); MEAN CORPUSCULAR VOLUME 95.1 fL (79-99); MONOCYTES # (AUTO) 0.8 K/uL (0.1-1.0); MONOCYTES % (AUTO) 11.5 % (3.0-13.0); NEUTROPHILS # (AUTO) 5.3 K/uL (1.8-7.7); NEUTROPHILS % (AUTO) 76.8 % (40.0-77.0); PLATELET COUNT (AUTO) 136 K/uL (130-400); RED BLOOD CELL COUNT(AUTO) 4.71 MIL/uL (4.50-6.20)
[2024-05-19 16:44] LABS: CREATININE 1.5 mg/dL (0.5-1.3); MAGNESIUM 1.9 mg/dL (1.80-2.40); POTASSIUM 3.9 mmol/L (3.5-5.1); TOTAL PROTEIN, SERUM 6.2 g/dL (6.0-8.3)
== END | disposition home or self-care (01) ==
LOC: LAB 13:02
PROVIDERS: ATTEND Internal Medicine Cardiovascular Disease
DX: I42.0 Dilated cardiomyopathy (principal); Z95.810 Presence of automatic (implantable) cardiac defibrillator
CPT/HCPCS: 36415; 80053; 83735; 83880; 85025

== ENCOUNTER → 2024-05-22 | Outpatient (CLI) | payer MEDICARE | END | disposition home or self-care (01) | LOC: SHCH 13:10 | PROVIDERS: ATTEND Internal Medicine Cardiovascular Disease | DX: I73.9 Peripheral vascular disease, unspecified (principal); R60.9 Edema, unspecified | CPT/HCPCS: 93970 ==

== ENCOUNTER → 2024-06-03 | Outpatient (CLI) | payer MEDICARE ==
[2024-06-03 17:10] LABS: ALBUMIN 3.4 g/dL (3.5-5.0); BILIRUBIN,TOTAL 2.4 mg/dL (0.2-1.0); CREATININE 1.8 mg/dL (0.5-1.3); MAGNESIUM 2.1 mg/dL (1.80-2.40); POTASSIUM 4.3 mmol/L (3.5-5.1); TOTAL PROTEIN, SERUM 6.6 g/dL (6.0-8.3)
== END | disposition home or self-care (01) ==
LOC: LAB 14:25
PROVIDERS: ATTEND Internal Medicine Cardiovascular Disease
DX: I42.0 Dilated cardiomyopathy (principal); Z95.810 Presence of automatic (implantable) cardiac defibrillator
CPT/HCPCS: 36415; 80053; 83735; 83880

== ENCOUNTER → 2024-10-20 | Outpatient (CLI) | payer MEDICARE ==
--- NOTE | 2024-10-20 12:18 | HMCIMG ---
Exam Type: US RENAL SONOGRAM Clinical Information: abn renal results of kidney function Comparison: None Findings: Examination shows normal renal size and echogenicity bilaterally. Preserved cortical thickness and corticomedullary junction region is seen. No hydronephrosis or calculi are seen. No renal masses are seen. There is no evidence of perinephric fluid on either side. No evidence of significant ureteral dilatation is seen. The urinary bladder is normal. No bladder masses, stones, or wall thickening is seen. IMPRESSION: Normal renal anatomy bilaterally.
== END | disposition home or self-care (01) ==
LOC: RAH 11:00
PROVIDERS: ATTEND Internal Medicine Nephrology
DX: N28.89 Other specified disorders of kidney and ureter (principal); R94.4 Abnormal results of kidney function studies
CPT/HCPCS: 76770

== ENCOUNTER → 2024-11-03 | Outpatient (CLI) | payer MEDICARE ==
[2024-11-03 21:53] VITALS: PULSE 87; RESP 12
[2024-11-03 22:27] VITALS: PULSE 79; RESP 14
[2024-11-03 23:06] VITALS: PULSE 71; RESP 18
[2024-11-03 23:32] VITALS: PULSE 74; RESP 18
--- NOTE | 2024-11-03 23:43 | NUR ---
CURRENT MEDICATIONS: LEVOTHYROXINE,ENTRESTO,SPIRINOACTONE,FUROSEMIDE,METROPOLOL,ROSAVASTATIN, ELIQUIS, POTASSIUM, METALOZONE. Addendum: 11/03/24 at 2345 by MADI MATHEW Amended: Links added.
[2024-11-04] VITALS (11 sets, daily range): PULSE 54–76; RESP 14–22
== END | disposition home or self-care (01) ==
LOC: SLP 21:05
PROVIDERS: ATTEND Internal Medicine Cardiovascular Disease
DX: G47.33 Obstructive sleep apnea (adult) (pediatric) (principal); R06.83 Snoring; I10 Essential (primary) hypertension
CPT/HCPCS: 95810

== ENCOUNTER → 2024-11-23 | Outpatient (CLI) | payer MEDICARE ==
[2024-11-23 22:55] VITALS: PULSE 71; RESP 16
[2024-11-23 23:30] VITALS: PULSE 75; RESP 19
[2024-11-23 23:51] VITALS: PULSE 71; RESP 16
[2024-11-24] VITALS (13 sets, daily range): PULSE 51–85; RESP 13–23
== END | disposition home or self-care (01) ==
LOC: SLP 21:31
PROVIDERS: ATTEND Internal Medicine Cardiovascular Disease
DX: G47.33 Obstructive sleep apnea (adult) (pediatric) (principal); I10 Essential (primary) hypertension; R09.02 Hypoxemia; R06.83 Snoring
CPT/HCPCS: 95811

== ENCOUNTER → 2025-02-16 | Outpatient (CLI) | payer MEDICARE ==
[~2025-02-16] MED LIST changes: -ROSU10TA72 PO; +ROSU10TA98 PO
--- NOTE | 2025-02-16 14:52 | HMCIMG ---
EXAM: US Duplex Bilateral Carotid and Vertebral Arteries. CLINICAL HISTORY: R09.89 carotid bruit TECHNIQUE: Real-time ultrasound scan of the bilateral carotid and vertebral arteries, 2-D eldridge scale, with color Doppler flow and spectral waveform analysis. COMPARISON: 12/31/23 RIGHT COMMON CAROTID ARTERY: Peak systolic velocity: 107 cm/s No occlusion or significant stenosis. RIGHT INTERNAL CAROTID ARTERY: Peak systolic velocity: 78 cm/s No occlusion or significant stenosis. RIGHT EXTERNAL CAROTID ARTERY: Peak systolic velocity: 75cm/s No occlusion or significant stenosis. RIGHT VERTEBRAL ARTERY: Antegrade flow Velocity: 42 cm/s RIGHT ICA/CCA RATIO: 0.8 ??? within normal limits LEFT COMMON CAROTID ARTERY: Peak systolic velocity: 97 cm/s No occlusion or significant stenosis. LEFT INTERNAL CAROTID ARTERY: Peak systolic velocity: 80 cm/s No occlusion or significant stenosis. LEFT EXTERNAL CAROTID ARTERY: Peak systolic velocity: 68 cm/s No occlusion or significant stenosis. LEFT VERTEBRAL ARTERY: Antegrade flow Velocity: 44 cm/s LEFT ICA/CCA RATIO: 0.9 ??? within normal limits SOFT TISSUES: No incidental abnormalities. IMPRESSION: 1. No hemodynamically significant stenosis in the bilateral carotid or vertebral arteries. /[place]
== END | disposition home or self-care (01) ==
LOC: RAH 11:20
PROVIDERS: ATTEND Internal Medicine
DX: R09.89 Other specified symptoms and signs involving the circulatory and respiratory systems (principal)
CPT/HCPCS: 93880